=== PATIENT | male | born 1965 | race Caucasian/White ===

== ENCOUNTER 2019-10-21 19:06 | Inpatient (IN) | payer OTHER ==
[~2019-10-21] VITALS: Ht 170.2 cm; Wt 88.7 kg
[2019-10-21] MEDS ORDERED: LORazepam 2 MG TABLET PO ONE (19:30)
[2019-10-21 20:01] LABS: BASOPHILS % (AUTO) 0.4 % (0.0-2.0); EOSINOPHILS % (AUTO) 2.6 % (1.0-6.0); HEMOGLOBIN 16.4 g/dL (13.5-17.5); LYMPHOCYTES # (AUTO) 2.7 K/uL (1.0-4.8); LYMPHOCYTES % (AUTO) 33.8 % (22.0-44.0); MEAN CORPUSCULAR HEMOGLOBIN 30.7 pg (26.0-34.0); MEAN CORPUSCULAR HGB CONC 34.1 G/dL (31.0-37.0); MEAN CORPUSCULAR VOLUME 90 fL (80-100); MONOCYTES # (AUTO) 0.5 K/uL (0.1-1.0); MONOCYTES % (AUTO) 6.6 % (2.0-9.0); NEUTROPHILS # (AUTO) 4.5 K/uL (1.8-7.7); NEUTROPHILS % (AUTO) 56.6 % (40.0-70.0); PLATELET COUNT (AUTO) 293 K/uL (150-450); RED BLOOD CELL COUNT(AUTO) 5.33 MIL/uL (4.50-5.90); RED CELL DISTRIBUTION WIDTH 13.4 % (11.5-14.5)
[2019-10-21 20:09] LABS: ANION GAP 5 mmol/L (8-16); CARBON DIOXIDE 33 mmol/L (22-29); CHLORIDE 103 mmol/L (98-107); CREATININE 0.92 mg/dL (0.60-1.30); GLOMERULAR FILTR. RATE CALC > 60 mL/min (>60); GLUCOSE,RANDOM 79 mg/dL (70-110); POTASSIUM 4.1 mmol/L (3.5-5.1); SODIUM SERUM 141 mmol/L (136-145); UREA NITROGEN, BLOOD 13 mg/dL (7-18)
[2019-10-21 20:15] LABS: ALANINE AMINOTRANSFERASE 50 U/L (12-78); ALBUMIN 3.6 g/dL (3.4-5.0); ALKALINE PHOSPHATASE 40 U/L (46-116); ASPARTATE AMINOTRANSFERASE 33 U/L (15-37); LIPASE 123 U/L (73-393); TOTAL PROTEIN, SERUM 6.8 g/dL (6.4-8.2)
[2019-10-21 20:57] LABS: APPEARANCE,URINE CLEAR (CLEAR); BILIRUBIN,URINE PRELIM. POSITIVE (NEGATIVE); GLUCOSE, URINE (UA) NEGATIVE (NEGATIVE); KETONES,URINE NEGATIVE (NEGATIVE); LEUKOCYTE ESTERASE ,URINE NEGATIVE (NEGATIVE); NITRATE,URINE NEGATIVE (NEGATIVE); OCCULT BLOOD,URINE NEGATIVE (NEGATIVE); PROTEIN,URINE NEGATIVE (NEGATIVE)
[2019-10-21 21:02] LABS: AMPHET/METH SCREEN,URINE POSITIVE (NEGATIVE); BARBITURATE SCREEN, URINE NEGATIVE (NEGATIVE); BENZODIAZEPINES SCREEN,URINE NEGATIVE (NEGATIVE); CANNABINOID SCREEN,URINE POSITIVE (NEGATIVE); COCAINE SCREEN,URINE NEGATIVE (NEGATIVE); METHADONE SCREEN, URINE NEGATIVE (NEGATIVE); OPIATE SCREEN,URINE NEGATIVE (NEGATIVE)
[2019-10-21 21:03] LABS: PHENCYCLIDINE SCREEN,URINE NEGATIVE (NEGATIVE)
[2019-10-21 21:04] LABS: BACTERIA,URINE Rare /HPF (None Seen); RBC,URINE 0-2 /HPF (0-2); SQUAMOUS EPITHELIAL CELL,UR Rare /LPF (None Seen)
[2019-10-21] MEDS ORDERED: 0.9% SODIUM CHLORIDE 10 ML SYRINGE IVP PRN (21:30)
[2019-10-21] MEDS ORDERED: ACETAMINOPHEN 325 MG TABLET PO PRN (21:30)
[2019-10-21] MEDS ORDERED: ONDANSETRON HCL 4 MG/2 ML VIAL IVP PRN ×2 (21:30→22:00)
[2019-10-21] MEDS ORDERED: MAGNESIUM SULFATE 2 GM, MVI, ADULT NO.1 WITH VIT K 10 ML, THIAMINE 100 MG, FOLIC ACID 1... IV ONE ×5 (22:00)
[2019-10-21] MEDS ORDERED: MAGNESIUM HYDROXIDE SUSPENSION 30 ML UDCUP PO PRN (22:00)
[2019-10-21] MEDS ORDERED: LORazepam 1 MG TABLET PO PRN (22:00)
[2019-10-21] MEDS ORDERED: MORPHINE SULFATE 2 MG/ML SYRINGE IVP PRN (22:00)
[2019-10-21] MEDS ORDERED: BISACODYL 10 MG RECTAL RECTAL SUPPOSITORY PR PRN (22:00)
[2019-10-21 22:08] VITALS: BP 114/62
[2019-10-21 23:21] LABS: PROSTATE SPECIFIC ANTIGEN 6.11 ng/mL (0.00-4.00)
[2019-10-21] MEDS: HEPARIN SODIUM,PORCINE 5,000 UNITS/ML VIAL SQ SCH (23:38)
[2019-10-22 04:49] VITALS: BP 132/84
[2019-10-22 07:52] LABS: ALANINE AMINOTRANSFERASE 47 U/L (12-78); ALBUMIN 3.2 g/dL (3.4-5.0); ALKALINE PHOSPHATASE 35 U/L (46-116); ANION GAP 7 mmol/L (8-16); ASPARTATE AMINOTRANSFERASE 60 U/L (15-37); CALCIUM, TOTAL 8.7 mg/dL (8.8-10.5); CARBON DIOXIDE 26 mmol/L (22-29); CHLORIDE 103 mmol/L (98-107); CREATININE 0.85 mg/dL (0.60-1.30); GLOMERULAR FILTR. RATE CALC > 60 mL/min (>60); GLUCOSE,RANDOM 83 mg/dL (70-110); SODIUM SERUM 136 mmol/L (136-145); TOTAL PROTEIN, SERUM 6.4 g/dL (6.4-8.2); UREA NITROGEN, BLOOD 14 mg/dL (7-18)
[2019-10-22] MEDS: DOCUSATE SODIUM 100 MG CAPSULE PO SCH ×2 (08:02→20:08)
[2019-10-22] MEDS: HEPARIN SODIUM,PORCINE 5,000 UNITS/ML VIAL SQ SCH ×3 (08:02→23:05)
[2019-10-22] MEDS: PANTOPRAZOLE SODIUM 40 MG DR TABLET PO SCH (08:02)
[2019-10-22 08:05] VITALS: BP 116/69
[2019-10-22] MEDS: ACETAMINOPHEN 325 MG TABLET PO PRN (08:13)
[2019-10-22] MEDS: HYDROCODONE/ACETAMINOPHEN 5-325 MG TABLET PO PRN ×2 (15:24→20:19)
[2019-10-22 16:10] VITALS: BP 119/74
[2019-10-22] MEDS ORDERED: IBUPROFEN 400 MG TABLET PO SCH (18:00)
[2019-10-22] MEDS ORDERED: IBUPROFEN 400 MG TABLET PO PRN ×2 (18:30)
[2019-10-22] MEDS: BENZOCAINE 10% 7 GM GEL TP PRN (20:13)
[2019-10-22 20:20] VITALS: BP 113/63
[2019-10-23] MEDS: ZOLPIDEM TARTRATE 5 MG TABLET PO PRN ×2 (04:06→20:56)
[2019-10-23] MEDS: HYDROCODONE/ACETAMINOPHEN 5-325 MG TABLET PO PRN ×5 (04:07→20:57)
[2019-10-23 04:28] VITALS: BP 123/77
[2019-10-23 08:07] VITALS: BP 113/72
[2019-10-23] MEDS: HEPARIN SODIUM,PORCINE 5,000 UNITS/ML VIAL SQ SCH ×2 (08:12→16:21)
[2019-10-23] MEDS: PANTOPRAZOLE SODIUM 40 MG DR TABLET PO SCH (08:12)
[2019-10-23] MEDS: DOCUSATE SODIUM 100 MG CAPSULE PO SCH ×2 (08:12→19:45)
[2019-10-23] MEDS: BENZOCAINE 10% 7 GM GEL TP PRN (08:20)
[2019-10-23 16:12] VITALS: BP 110/66
[2019-10-23 19:44] VITALS: BP 123/71
[2019-10-24 00:14] VITALS: BP 133/70
[2019-10-24 05:13] VITALS: BP 118/78
[2019-10-24] MEDS: PANTOPRAZOLE SODIUM 40 MG DR TABLET PO SCH (07:53)
[2019-10-24] MEDS: HEPARIN SODIUM,PORCINE 5,000 UNITS/ML VIAL SQ SCH ×4 (07:54→23:41)
[2019-10-24] MEDS: DOCUSATE SODIUM 100 MG CAPSULE PO SCH ×2 (07:54→19:39)
[2019-10-24] MEDS: HYDROCODONE/ACETAMINOPHEN 5-325 MG TABLET PO PRN ×4 (07:55→22:15)
[2019-10-24 08:06] VITALS: BP 109/66
[2019-10-24 15:17] VITALS: BP 119/70
[2019-10-24] MEDS: BENZOCAINE 10% 7 GM GEL TP PRN (16:15)
[2019-10-24 19:00] VITALS: BP 114/79
[2019-10-24] MEDS: ZOLPIDEM TARTRATE 5 MG TABLET PO PRN (23:41)
[2019-10-25] MEDS: HEPARIN SODIUM,PORCINE 5,000 UNITS/ML VIAL SQ SCH ×3 (08:03→23:57)
[2019-10-25] MEDS: DOCUSATE SODIUM 100 MG CAPSULE PO SCH ×2 (08:03→19:43)
[2019-10-25] MEDS: PANTOPRAZOLE SODIUM 40 MG DR TABLET PO SCH (08:03)
[2019-10-25] MEDS: HYDROCODONE/ACETAMINOPHEN 5-325 MG TABLET PO PRN ×3 (08:13→22:13)
[2019-10-25 08:21] VITALS: BP 114/74
[2019-10-25 15:56] VITALS: BP 100/57
[2019-10-25] MEDS ORDERED: NICOTINE 14 MG/24 HOUR PATCH TD SCH (17:00)
[2019-10-25 19:25] VITALS: BP 95/59
[2019-10-25] MEDS: ACETAMINOPHEN 325 MG TABLET PO PRN (19:43)
[2019-10-25] MEDS: ZOLPIDEM TARTRATE 5 MG TABLET PO PRN (22:10)
[2019-10-26 04:15] VITALS: BP 98/59
[2019-10-26] MEDS: HYDROCODONE/ACETAMINOPHEN 5-325 MG TABLET PO PRN (04:22)
== END 2019-10-26 07:10 | DRG 897 ==
LOC: EMS 19:06 → 6S 21:24 → UNDOADMIN 21:24 → 6S 21:54
PROVIDERS: ADMIT Internal Medicine; ATTEND Internal Medicine
DX: F10.229 Alcohol dependence with intoxication, unspecified (principal); I86.1 Scrotal varices; N43.3 Hydrocele, unspecified; M47.812 Spondylosis without myelopathy or radiculopathy, cervical region; F12.90 Cannabis use, unspecified, uncomplicated; B18.2 Chronic viral hepatitis C; F15.90 Other stimulant use, unspecified, uncomplicated; N40.0 Benign prostatic hyperplasia without lower urinary tract symptoms; F17.210 Nicotine dependence, cigarettes, uncomplicated; Z90.49 Acquired absence of other specified parts of digestive tract
CPT/HCPCS: 72040; 76870; 84153; 87491; 87591; G0480; J1644; J2405; J3411; J3475; J3490; J7030

== ENCOUNTER 2019-11-08 23:38 | Emergency (ER) | payer OTHER ==
[~2019-11-08] VITALS: Ht 167.6 cm; Wt 81.8 kg
[2019-11-09] MEDS ORDERED: TAMS-13 PO (00:44)
[2019-11-09] MEDS ORDERED: GABA-1181 PO (00:44)
[2019-11-09] MEDS ORDERED: ACETAMINOPHEN 500 MG TABLET PO ONE (00:45)
[2019-11-09] MEDS ORDERED: SODIUM CHLORIDE 0.9% 100 ML ONE (01:06)
[2019-11-09] MEDS ORDERED: IOVERSOL 350 MG/ML 150 ML VIAL ONE (01:06)
[2019-11-09 01:34] LABS: BASOPHILS % (AUTO) 0.4 % (0.0-2.0); EOSINOPHILS % (AUTO) 1.7 % (1.0-6.0); HEMATOCRIT 47.9 % (41-53); HEMOGLOBIN 16.1 g/dL (13.5-17.5); LYMPHOCYTES # (AUTO) 3.2 K/uL (1.0-4.8); LYMPHOCYTES % (AUTO) 27.7 % (22.0-44.0); MEAN CORPUSCULAR HEMOGLOBIN 29.8 pg (26.0-34.0); MEAN CORPUSCULAR HGB CONC 33.7 G/dL (31.0-37.0); MEAN CORPUSCULAR VOLUME 88 fL (80-100); MONOCYTES # (AUTO) 0.9 K/uL (0.1-1.0); MONOCYTES % (AUTO) 7.6 % (2.0-9.0); NEUTROPHILS # (AUTO) 7.3 K/uL (1.8-7.7); NEUTROPHILS % (AUTO) 62.6 % (40.0-70.0); PLATELET COUNT (AUTO) 303 K/uL (150-450); RED BLOOD CELL COUNT(AUTO) 5.43 MIL/uL (4.50-5.90)
[2019-11-09 01:41] LABS: ANION GAP 9 mmol/L (8-16); CALCIUM, TOTAL 9.3 mg/dL (8.8-10.5); CARBON DIOXIDE 25 mmol/L (22-29); CHLORIDE 102 mmol/L (98-107); CREATININE 0.99 mg/dL (0.60-1.30); GLOMERULAR FILTR. RATE CALC > 60 mL/min (>60); GLUCOSE,RANDOM 92 mg/dL (70-110); POTASSIUM 3.7 mmol/L (3.5-5.1); SODIUM SERUM 136 mmol/L (136-145); UREA NITROGEN, BLOOD 10 mg/dL (7-18)
[2019-11-09 01:47] LABS: ALANINE AMINOTRANSFERASE 65 U/L (12-78); ALBUMIN 3.9 g/dL (3.4-5.0); ALKALINE PHOSPHATASE 47 U/L (46-116); ASPARTATE AMINOTRANSFERASE 36 U/L (15-37); BILIRUBIN,TOTAL 0.7 mg/dL (0.1-1.0); TOTAL PROTEIN, SERUM 7.1 g/dL (6.4-8.2)
[2019-11-09 04:45] VITALS: BP 137/72
== END 2019-11-09 04:59 | disposition home or self-care (01) ==
LOC: EMS 23:38
DX: S09.90XA Unspecified injury of head, initial encounter (principal); Y08.89XA Assault by other specified means, initial encounter; Y93.89 Activity, other specified; Y92.89 Other specified places as the place of occurrence of the external cause; Y99.8 Other external cause status
CPT/HCPCS: 36415; 70450; 70486; 71260; 72125; 72128; 72131; 74177; 80053; 85025; 99285; J7050; Q9967; 72193; 74160

== ENCOUNTER 2020-07-14 14:49 | Inpatient (IN) | payer OTHER ==
[~2020-07-14] VITALS: Ht 177.8 cm; Wt 118.0 kg
[~2020-07-14 14:49] MED LIST: GABA-1181 PO; TAMS-13 PO
[2020-07-14] MEDS ORDERED: HYDR-4031 PO (14:57)
[2020-07-14 15:59] LABS: COVID AG,FIA SOURCE NASOPHARYNGEAL
[2020-07-14 16:01] LABS: BASOPHILS % (AUTO) 0.8 % (0.0-2.0); EOSINOPHILS % (AUTO) 5.2 % (1.0-6.0); HEMATOCRIT 42.8 % (41-53); HEMOGLOBIN 14.5 g/dL (13.5-17.5); LYMPHOCYTES # (AUTO) 1.9 K/uL (1.0-4.8); LYMPHOCYTES % (AUTO) 35.3 % (22.0-44.0); MEAN CORPUSCULAR HEMOGLOBIN 28.5 pg (26.0-34.0); MEAN CORPUSCULAR HGB CONC 33.8 G/dL (31.0-37.0); MEAN CORPUSCULAR VOLUME 84 fL (80-100); MONOCYTES # (AUTO) 0.6 K/uL (0.1-1.0); MONOCYTES % (AUTO) 10.9 % (2.0-9.0); NEUTROPHILS # (AUTO) 2.5 K/uL (1.8-7.7); NEUTROPHILS % (AUTO) 47.8 % (40.0-70.0); PLATELET COUNT (AUTO) 231 K/uL (150-450); RED BLOOD CELL COUNT(AUTO) 5.08 MIL/uL (4.50-5.90); RED CELL DISTRIBUTION WIDTH 13.4 % (11.5-14.5)
[2020-07-14 16:15] LABS: ANION GAP 6 mmol/L (8-16); CALCIUM, TOTAL 8.5 mg/dL (8.8-10.5); CARBON DIOXIDE 28 mmol/L (22-29); CHLORIDE 107 mmol/L (98-107); GLOMERULAR FILTR. RATE CALC > 60 mL/min (>60); GLUCOSE,RANDOM 108 mg/dL (70-110); POTASSIUM 3.8 mmol/L (3.5-5.1); SODIUM SERUM 141 mmol/L (136-145); UREA NITROGEN, BLOOD 11 mg/dL (7-18)
[2020-07-14 16:22] LABS: AMMONIA 24 umol/L (11-32)
[2020-07-14] MEDS ORDERED: IOHEXOL 350 MG/ML 100 ML VIAL ONE (16:22)
[2020-07-14] MEDS ORDERED: SODIUM CHLORIDE 0.9% 100 ML ONE (16:22)
[2020-07-14 16:23] LABS: LACTIC ACID 0.8 mmol/L (0.4-2.0)
[2020-07-14 16:27] LABS: TROPONIN I < 0.02 ng/mL (0.00-0.05)
[2020-07-14 16:30] LABS: B-TYPE NATRIURETIC PEPTIDE 19 pg/mL (0-100)
[2020-07-14 16:40] LABS: ALANINE AMINOTRANSFERASE 47 U/L (12-78); ALBUMIN 3.4 g/dL (3.4-5.0); ALKALINE PHOSPHATASE 70 U/L (46-116); ASPARTATE AMINOTRANSFERASE 31 U/L (15-37); BILIRUBIN,TOTAL 0.5 mg/dL (0.1-1.0); CREATINE KINASE, TOTAL ONLY 148 U/L (39-308); LIPASE 83 U/L (73-393); TOTAL PROTEIN, SERUM 6.1 g/dL (6.4-8.2)
[2020-07-14] MEDS ORDERED: FAMOTIDINE 10 MG/ML 2 ML VIAL IVP ONE (17:30)
[2020-07-14] MEDS ORDERED: PB/HYOSCY/ATR/SCOP/LIDO/MAALOX 55 ML BOTTLE PO ONE (17:30)
[2020-07-14 17:48] LABS: APPEARANCE,URINE CLEAR (CLEAR); BILIRUBIN,URINE NEGATIVE (NEGATIVE); GLUCOSE, URINE (UA) NEGATIVE (NEGATIVE); KETONES,URINE NEGATIVE (NEGATIVE); LEUKOCYTE ESTERASE ,URINE NEGATIVE (NEGATIVE); NITRATE,URINE NEGATIVE (NEGATIVE); OCCULT BLOOD,URINE NEGATIVE (NEGATIVE); PH,URINE 6.5 (5.0-8.0); PROTEIN,URINE NEGATIVE (NEGATIVE)
[2020-07-14 17:58] LABS: RBC,URINE None Seen /HPF (0-2); WBC,URINE None Seen /HPF (0-5)
[2020-07-14 17:59] LABS: BACTERIA,URINE None Seen /HPF (None Seen); SQUAMOUS EPITHELIAL CELL,UR None Seen /LPF (None Seen)
[2020-07-14] MEDS ORDERED: 0.9% SODIUM CHLORIDE 10 ML SYRINGE IVP PRN (19:30)
[2020-07-14] MEDS ORDERED: ONDANSETRON HCL 4 MG/2 ML VIAL IVP PRN ×2 (19:30→20:45)
[2020-07-14] MEDS ORDERED: ACETAMINOPHEN 325 MG TABLET PO PRN (19:30)
[2020-07-14 21:05] VITALS: BP 129/98
[2020-07-14] MEDS: HydrOXYzine PAMOATE 25 MG CAPSULE PO SCH (21:31)
[2020-07-14] MEDS: GABAPENTIN 300 MG CAPSULE PO SCH (21:31)
[2020-07-14] MEDS: FUROSEMIDE 20 MG TABLET PO SCH (21:31)
[2020-07-14 23:09] VITALS: BP 108/57
[2020-07-14] MEDS: HEPARIN SODIUM,PORCINE 5,000 UNITS/ML VIAL SQ SCH (23:43)
[2020-07-14] MEDS: MELATONIN 3 MG TABLET PO PRN (23:44)
[2020-07-15] MEDS: ACETAMINOPHEN 325 MG TABLET PO PRN ×2 (03:48→15:16)
[2020-07-15 03:49] VITALS: BP 113/71
[2020-07-15 07:12] VITALS: BP 106/75
[2020-07-15] MEDS: GABAPENTIN 300 MG CAPSULE PO SCH ×2 (07:49→20:31)
[2020-07-15] MEDS: HEPARIN SODIUM,PORCINE 5,000 UNITS/ML VIAL SQ SCH ×3 (07:49→23:46)
[2020-07-15] MEDS: TAMSULOSIN HCL 0.4 MG CAPSULE PO SCH (07:49)
[2020-07-15] MEDS: HydrOXYzine PAMOATE 25 MG CAPSULE PO SCH ×2 (07:49→20:31)
[2020-07-15] MEDS: FUROSEMIDE 20 MG TABLET PO SCH (07:49)
[2020-07-15] MEDS: ASPIRIN 81 MG CHEWABLE TABLET PO SCH (07:49)
[2020-07-15 11:17] VITALS: BP 105/58
[2020-07-15 15:50] VITALS: BP 108/64
[2020-07-15 20:18] VITALS: BP 109/68
[2020-07-15] MEDS: MELATONIN 3 MG TABLET PO PRN (22:10)
[2020-07-16 00:15] VITALS: BP 99/63
[2020-07-16 05:17] VITALS: BP 99/66
[2020-07-16 08:13] VITALS: BP 125/72
[2020-07-16] MEDS: FUROSEMIDE 20 MG TABLET PO SCH (08:41)
[2020-07-16] MEDS: GABAPENTIN 300 MG CAPSULE PO SCH ×2 (08:42→20:26)
[2020-07-16] MEDS: HEPARIN SODIUM,PORCINE 5,000 UNITS/ML VIAL SQ SCH ×3 (08:42→23:17)
[2020-07-16] MEDS: ASPIRIN 81 MG CHEWABLE TABLET PO SCH (08:42)
[2020-07-16] MEDS: HydrOXYzine PAMOATE 25 MG CAPSULE PO SCH ×2 (08:42→20:26)
[2020-07-16] MEDS: TAMSULOSIN HCL 0.4 MG CAPSULE PO SCH (08:42)
[2020-07-16] MEDS ORDERED: ASPI-1450 PO (10:34)
[2020-07-16] MEDS ORDERED: FURO20 PO (10:35)
[2020-07-16] MEDS ORDERED: POTA8CAP20 PO (10:35)
[2020-07-16] MEDS ORDERED: MELA3TAB89 PO (10:36)
[2020-07-16] MEDS ORDERED: ACET650S24 PO (10:36)
[2020-07-16 11:28] VITALS: BP 125/76
[2020-07-16 18:16] VITALS: BP 110/71
[2020-07-16 20:05] VITALS: BP 98/56
[2020-07-16] MEDS: MELATONIN 3 MG TABLET PO PRN (20:27)
[2020-07-17 04:10] VITALS: BP 114/67
[2020-07-17 07:44] VITALS: BP 119/69
[2020-07-17] MEDS: HEPARIN SODIUM,PORCINE 5,000 UNITS/ML VIAL SQ SCH (08:04)
[2020-07-17] MEDS: GABAPENTIN 300 MG CAPSULE PO SCH (08:04)
[2020-07-17] MEDS: TAMSULOSIN HCL 0.4 MG CAPSULE PO SCH (08:04)
[2020-07-17] MEDS: ASPIRIN 81 MG CHEWABLE TABLET PO SCH (08:05)
[2020-07-17] MEDS: HydrOXYzine PAMOATE 25 MG CAPSULE PO SCH (08:05)
[2020-07-17] MEDS: FUROSEMIDE 20 MG TABLET PO SCH (08:07)
[2020-07-17] MEDS: ACETAMINOPHEN 325 MG TABLET PO PRN (08:16)
[2020-07-17] MEDS ORDERED: POTASSIUM CHLORIDE 8 MEQ ER TABLET PO SCH (09:00)
== END 2020-07-17 14:00 | DRG 313 ==
LOC: EMS 14:49 → 5S 19:42 → 6S 07-16 17:40
PROVIDERS: ADMIT Internal Medicine; ATTEND Internal Medicine
DX: R07.89 Other chest pain (principal); E66.9 Obesity, unspecified; Z68.37 Body mass index [BMI] 37.0-37.9, adult; N40.0 Benign prostatic hyperplasia without lower urinary tract symptoms; G47.33 Obstructive sleep apnea (adult) (pediatric); K76.9 Liver disease, unspecified; Z90.49 Acquired absence of other specified parts of digestive tract; F17.200 Nicotine dependence, unspecified, uncomplicated; F12.90 Cannabis use, unspecified, uncomplicated; F15.90 Other stimulant use, unspecified, uncomplicated; B18.2 Chronic viral hepatitis C; R60.0 Localized edema; Z20.822 Contact with and (suspected) exposure to COVID-19
CPT/HCPCS: 71045; 74177; 80053; 81001; 82140; 82550; 83605; 83690; 83735; 83880; 84484; 85025; 85379; 87040; 87426; 93005; 93306; 93970; 99285; A9575; J1644; J2405; J3490; J7050; 36415-L1; 36415-TC

== ENCOUNTER 2024-04-20 21:50 | Emergency (ER) | payer OTHER ==
[~2024-04-20] VITALS: Ht 167.6 cm; Wt 86.4 kg
[~2024-04-20 21:50] MED LIST changes: +ACET650S24 PO; +ASPI-1450 PO; +FURO20TA5 PO; +HYDR-4808 PO; +MELA3TAB89 PO; +POTA8CAP20 PO; -TAMS-13 PO; +TAMS0.4C94 PO
[2024-04-20 22:46] VITALS: TEMP 98.6
[2024-04-20 23:11] LABS: BASOPHILS % (AUTO) 0.5 % (0.0-2.0); EOSINOPHILS % (AUTO) 2.9 % (1.0-6.0); HEMATOCRIT 49.3 % (41-53); HEMOGLOBIN 16.5 g/dL (13.5-17.5); LYMPHOCYTES # (AUTO) 3.4 K/uL (1.0-4.8); LYMPHOCYTES % (AUTO) 38.7 % (22.0-44.0); MEAN CORPUSCULAR HEMOGLOBIN 29.8 pg (26.0-34.0); MEAN CORPUSCULAR HGB CONC 33.5 G/dL (31.0-37.0); MEAN CORPUSCULAR VOLUME 89 fL (80-100); MONOCYTES # (AUTO) 0.6 K/uL (0.1-1.0); MONOCYTES % (AUTO) 6.4 % (2.0-9.0); NEUTROPHILS # (AUTO) 4.5 K/uL (1.8-7.7); NEUTROPHILS % (AUTO) 51.5 % (40.0-70.0); PLATELET COUNT (AUTO) 332 K/uL (150-450); RED BLOOD CELL COUNT(AUTO) 5.55 MIL/uL (4.50-5.90); RED CELL DISTRIBUTION WIDTH 13.3 % (11.5-14.5); WHITE BLOOD COUNT (AUTO) 8.8 K/uL (4.5-11.0)
[2024-04-20 23:24] LABS: ANION GAP 4 mmol/L (8-16); CALCIUM, TOTAL 9.1 mg/dL (8.8-10.5); CARBON DIOXIDE 32 mmol/L (22-29); CHLORIDE 103 mmol/L (98-107); CREATININE 0.99 mg/dL (0.60-1.30); GLOMERULAR FILTR. RATE CALC > 60 mL/min (>60); GLUCOSE,RANDOM 78 mg/dL (70-110); POTASSIUM 4.4 mmol/L (3.5-5.1); SODIUM SERUM 139 mmol/L (136-145); UREA NITROGEN, BLOOD 15 mg/dL (7-18)
[2024-04-21] VITALS: BP 128/71; PULSE 70; RESP 18; O2SAT 98
== END 2024-04-21 00:16 ==
LOC: EMS 21:50
DX: K59.00 Constipation, unspecified (principal); M25.511 Pain in right shoulder; Z79.899 Other long term (current) drug therapy; Z86.0100 Personal history of colon polyps, unspecified; Z86.19 Personal history of other infectious and parasitic diseases; Z90.49 Acquired absence of other specified parts of digestive tract
CPT/HCPCS: 74018; 80048; 85025; 99284; 36415-L1; 36415-TC

== ENCOUNTER 2024-04-23 19:13 | Inpatient (IN) | payer OTHER ==
[~2024-04-23] VITALS: Ht 167.6 cm; Wt 90.9 kg
[2024-04-23 19:48] LABS: BASOPHILS % (AUTO) 0.8 % (0.0-2.0); EOSINOPHILS % (AUTO) 3.4 % (1.0-6.0); HEMATOCRIT 47.2 % (41-53); HEMOGLOBIN 15.9 g/dL (13.5-17.5); LYMPHOCYTES % (AUTO) 29.9 % (22.0-44.0); MEAN CORPUSCULAR HEMOGLOBIN 29.5 pg (26.0-34.0); MEAN CORPUSCULAR HGB CONC 33.6 G/dL (31.0-37.0); MEAN CORPUSCULAR VOLUME 88 fL (80-100); MONOCYTES # (AUTO) 0.5 K/uL (0.1-1.0); MONOCYTES % (AUTO) 7.3 % (2.0-9.0); NEUTROPHILS # (AUTO) 3.9 K/uL (1.8-7.7); NEUTROPHILS % (AUTO) 58.6 % (40.0-70.0); PLATELET COUNT (AUTO) 317 K/uL (150-450); RED BLOOD CELL COUNT(AUTO) 5.38 MIL/uL (4.50-5.90); RED CELL DISTRIBUTION WIDTH 13.2 % (11.5-14.5); WHITE BLOOD COUNT (AUTO) 6.6 K/uL (4.5-11.0)
[2024-04-23 19:57] LABS: ANION GAP 7 mmol/L (8-16); CALCIUM, TOTAL 8.4 mg/dL (8.8-10.5); CARBON DIOXIDE 29 mmol/L (22-29); CHLORIDE 105 mmol/L (98-107); CREATININE 0.77 mg/dL (0.60-1.30); GLOMERULAR FILTR. RATE CALC > 60 mL/min (>60); GLUCOSE,RANDOM 110 mg/dL (70-110); POTASSIUM 3.8 mmol/L (3.5-5.1); SODIUM SERUM 141 mmol/L (136-145); UREA NITROGEN, BLOOD 11 mg/dL (7-18)
[2024-04-23 20:01] LABS: ALANINE AMINOTRANSFERASE 19 U/L (12-78); ALBUMIN 3.2 g/dL (3.4-5.0); ALKALINE PHOSPHATASE 62 U/L (46-116); ASPARTATE AMINOTRANSFERASE 18 U/L (15-37); BILIRUBIN,TOTAL 0.7 mg/dL (0.1-1.0); TOTAL PROTEIN, SERUM 6.6 g/dL (6.4-8.2)
[2024-04-23 20:21] LABS: TROPONIN I-HIGH SENSITIVITY 29 ng/L (<76)
[2024-04-23] MEDS: KETOROLAC TROMETHAMINE 30 MG/ML VIAL IVP ONE (20:27)
[2024-04-23] MEDS: SODIUM CHLORIDE 0.9% 1,000 ML IV ONE (20:27)
[2024-04-23] MEDS: ONDANSETRON HCL 4 MG/2 ML VIAL IVP ONE (20:27)
[2024-04-24] MEDS: KETOROLAC TROMETHAMINE 30 MG/ML VIAL IVP ONE (05:27)
[2024-04-24 07:02] VITALS: BP 137/85; PULSE 61; RESP 18; TEMP 97.9; O2SAT 98
[2024-04-24 08:31] VITALS: BP 124/69; PULSE 59; RESP 18; TEMP 97.7; O2SAT 99
[2024-04-24] MEDS ORDERED: LOPERAMIDE HCL 2 MG CAPSULE PO PRN (10:30)
[2024-04-24] MEDS ORDERED: DICYCLOMINE HCL 10 MG CAPSULE PO PRN (10:30)
[2024-04-24] MEDS ORDERED: LORazepam 2 MG/ML VIAL IVP PRN (10:30)
[2024-04-24] MEDS ORDERED: METOCLOPRAMIDE HCL 5 MG/ML 2 ML VIAL IVP PRN (10:30)
[2024-04-24] MEDS ORDERED: ACETAMINOPHEN 325 MG TABLET PO PRN (14:30)
[2024-04-24] MEDS ORDERED: IBUPROFEN 400 MG TABLET PO PRN (14:30)
[2024-04-24] MEDS: TEMAZEPAM 15 MG CAPSULE PO SCH (20:26)
[2024-04-24] MEDS: MORPHINE SULFATE 2 MG/ML SYRINGE IVP PRN (22:30)
[2024-04-25 04:03] VITALS: BP 128/85; PULSE 64; RESP 18; TEMP 98.2; O2SAT 97
[2024-04-25 08:16] VITALS: BP 122/79; PULSE 108; RESP 18; TEMP 98.1; O2SAT 95
[2024-04-25] MEDS ORDERED: ONDANSETRON HCL 4 MG/2 ML VIAL IVP PRN (13:15)
[2024-04-25] MEDS ORDERED: ACET-2247 PO (13:36)
[2024-04-25] MEDS ORDERED: MELATONIN 3 MG TABLET PO PRN (13:45)
[2024-04-25 16:41] VITALS: BP 134/98; PULSE 71; RESP 18; TEMP 98.2; O2SAT 97
[2024-04-25 20:04] VITALS: BP 118/70; PULSE 69; RESP 18; TEMP 98.4; O2SAT 98
[2024-04-25] MEDS: GABAPENTIN 300 MG CAPSULE PO SCH (20:32)
[2024-04-25] MEDS: DOCUSATE SODIUM 100 MG CAPSULE PO SCH (20:33)
[2024-04-25] MEDS ORDERED: DULoxetine HCL 20 MG CAPSULE PO SCH (21:00)
[2024-04-25] MEDS: GABAPENTIN 300 MG CAPSULE PO ONE (22:26)
[2024-04-25] MEDS: DICLOFENAC SODIUM 1% 100 GM GEL [2GM] TP SCH (22:27)
[2024-04-25] MEDS: DULoxetine HCL 30 MG CAPSULE PO SCH (22:27)
[2024-04-26 05:15] VITALS: BP 131/78; PULSE 64; RESP 18; TEMP 98; O2SAT 96
[2024-04-26 07:31] LABS: HEMOGLOBIN 16.3 g/dL (13.5-17.5); LYMPHOCYTES # (AUTO) 2.3 K/uL (1.0-4.8); LYMPHOCYTES % (AUTO) 32.4 % (22.0-44.0); MONOCYTES # (AUTO) 0.6 K/uL (0.1-1.0); RED CELL DISTRIBUTION WIDTH 13.1 % (11.5-14.5); WHITE BLOOD COUNT (AUTO) 7.1 K/uL (4.5-11.0)
[2024-04-26 07:52] LABS: BASOPHILS % (AUTO) 0.5 % (0.0-2.0); EOSINOPHILS % (AUTO) 3.8 % (1.0-6.0); HEMATOCRIT 48.4 % (41-53); MEAN CORPUSCULAR HEMOGLOBIN 29.5 pg (26.0-34.0); MEAN CORPUSCULAR HGB CONC 33.7 G/dL (31.0-37.0); MEAN CORPUSCULAR VOLUME 88 fL (80-100); MONOCYTES % (AUTO) 8.7 % (2.0-9.0); NEUTROPHILS # (AUTO) 3.9 K/uL (1.8-7.7); NEUTROPHILS % (AUTO) 54.6 % (40.0-70.0); RED BLOOD CELL COUNT(AUTO) 5.52 MIL/uL (4.50-5.90)
[2024-04-26 07:55] LABS: ANION GAP 8 mmol/L (8-16); CALCIUM, TOTAL 8.3 mg/dL (8.8-10.5); CARBON DIOXIDE 26 mmol/L (22-29); CHLORIDE 104 mmol/L (98-107); CREATININE 0.86 mg/dL (0.60-1.30); GLOMERULAR FILTR. RATE CALC > 60 mL/min (>60); GLUCOSE,RANDOM 90 mg/dL (70-110); SODIUM SERUM 138 mmol/L (136-145); UREA NITROGEN, BLOOD 18 mg/dL (7-18)
[2024-04-26 08:15] VITALS: BP 130/75; PULSE 65; RESP 18; TEMP 98.2; O2SAT 99
[2024-04-26] MEDS: TAMSULOSIN HCL 0.4 MG CAPSULE PO SCH (08:48)
[2024-04-26] MEDS: GABAPENTIN 300 MG CAPSULE PO SCH (08:48)
[2024-04-26] MEDS: ASPIRIN 81 MG CHEWABLE TABLET PO SCH (08:49)
[2024-04-26 08:56] LABS: PLATELET COUNT (AUTO) 293 K/uL (150-450)
[2024-04-26] MEDS ORDERED: DICL100G60 TP (10:13)
[2024-04-26] MEDS ORDERED: IBUP-1506 PO (10:13)
[2024-04-26] MEDS ORDERED: GABA-1181 PO (10:13)
[2024-04-26] MEDS ORDERED: CARV3 PO (11:08)
== END 2024-04-26 14:13 | DRG 556 ==
LOC: EMS 19:13 → EDH 04-24 04:16 → 6S 04-24 06:37
PROVIDERS: ADMIT Internal Medicine; ATTEND Internal Medicine
DX: M25.511 Pain in right shoulder (principal); F11.23 Opioid dependence with withdrawal; N40.0 Benign prostatic hyperplasia without lower urinary tract symptoms; E44.1 Mild protein-calorie malnutrition; G89.4 Chronic pain syndrome; K76.9 Liver disease, unspecified; Z68.32 Body mass index [BMI] 32.0-32.9, adult; Z86.0100 Personal history of colon polyps, unspecified
CPT/HCPCS: 80048; 80076; 83735; 84484; 85025; 93005; 96361; 96374; 96375; 99285; G0480; J1885; J2270; J2405; J7030; 36415-L1; 36415-TC

== ENCOUNTER 2024-12-08 00:14 | Inpatient (IN) | payer OTHER ==
[~2024-12-08] VITALS: Ht 170.2 cm; Wt 106.9 kg
[~2024-12-08 00:14] MED LIST changes: +ACET-2247 PO; -ACET650S24 PO; +CARV3 PO; +DICL100G60 TP; +IBUP-1506 PO
[2024-12-08 04:46] LABS: PLATELET COUNT (AUTO) 275 K/uL (150-450); RED BLOOD CELL COUNT(AUTO) 5.05 MIL/uL (4.50-5.90); RED CELL DISTRIBUTION WIDTH 14.5 % (11.5-14.5); WHITE BLOOD COUNT (AUTO) 7.4 K/uL (4.5-11.0)
[2024-12-08 04:55] LABS: CALCIUM, TOTAL 8.6 mg/dL (8.8-10.5); CREATININE 0.83 mg/dL (0.60-1.30); GLOMERULAR FILTR. RATE CALC > 60 mL/min (>60); GLUCOSE,RANDOM 126 mg/dL (70-110); SODIUM SERUM 141 mmol/L (136-145); UREA NITROGEN, BLOOD 14 mg/dL (7-18)
[2024-12-08 05:04] LABS: TROPONIN I-HIGH SENSITIVITY 49 ng/L (<76)
[2024-12-08] MEDS: HYDROCODONE/ACETAMINOPHEN 5-325 MG TABLET PO ONE (05:23)
[2024-12-08] MEDS ORDERED: ACETAMINOPHEN 325 MG TABLET PO PRN (05:30)
[2024-12-08] MEDS ORDERED: MAGNESIUM HYDROXIDE SUSPENSION 30 ML UDCUP PO PRN (05:30)
[2024-12-08] MEDS ORDERED: ZOLPIDEM TARTRATE 5 MG TABLET PO PRN (05:30)
[2024-12-08] MEDS ORDERED: ONDANSETRON HCL 4 MG/2 ML VIAL IVP PRN (05:30)
[2024-12-08] MEDS ORDERED: POTASSIUM CHL 10 MEQ/WATER 50 ML IV PRN (08:00)
[2024-12-08] MEDS ORDERED: TAMS0.4C94 PO (09:07)
[2024-12-08] MEDS ORDERED: ALBU18HF12 IH (09:07)
[2024-12-08] MEDS ORDERED: TADA20TA31 PO (09:07)
[2024-12-08] MEDS ORDERED: FLUT1BLS18 IH (09:07)
[2024-12-08] MEDS ORDERED: LISI2.5T91 PO (09:07)
[2024-12-08] MEDS ORDERED: DOCU-119 PO (09:07)
[2024-12-08] MEDS ORDERED: CARV3.1231 PO (09:07)
[2024-12-08] MEDS ORDERED: HYDR-4062 PO (09:07)
[2024-12-08] MEDS: FAMOTIDINE 20 MG TABLET PO SCH (09:18)
[2024-12-08] MEDS: HEPARIN SODIUM,PORCINE 5,000 UNITS/ML VIAL SQ SCH (09:18)
[2024-12-08] MEDS: DOCUSATE SODIUM 100 MG CAPSULE PO SCH (09:18)
[2024-12-08 09:53] VITALS: BP 125/79; PULSE 70; RESP 18; TEMP 97.9; O2SAT 97
[2024-12-08] MEDS: OxyCODONE HCL/ACETAMINOPHEN 5-325 MG TABLET PO PRN (15:20)
[2024-12-08 16:00] VITALS: BP 128/93; RESP 20; O2SAT 98
[2024-12-08] MEDS: POTASSIUM CHLORIDE 20 MEQ ER TABLET PO PRN (17:06)
[2024-12-08 19:42] VITALS: BP 128/84; PULSE 76; RESP 19; TEMP 98.1; O2SAT 95
[2024-12-08] MEDS: GABAPENTIN 300 MG CAPSULE PO SCH (21:03)
[2024-12-09 00:13] VITALS: BP 103/57; PULSE 78; RESP 18; TEMP 98.1; O2SAT 96
[2024-12-09 04:15] VITALS: BP 121/85; PULSE 69; RESP 18; TEMP 98.2; O2SAT 98
[2024-12-09 07:00] VITALS: BP 118/80; PULSE 74; RESP 18; TEMP 98.6; O2SAT 97
[2024-12-09] MEDS: ASPIRIN 81 MG CHEWABLE TABLET PO SCH (08:00)
[2024-12-09] MEDS: TAMSULOSIN HCL 0.4 MG CAPSULE PO SCH (08:00)
[2024-12-09] MEDS ORDERED: FAMO20 PO (11:28)
[2024-12-09] MEDS ORDERED: MAGN-169 PO (11:37)
[2024-12-09] MEDS ORDERED: ACET-2080 PO (11:39)
[2024-12-09 12:14] VITALS: BP 126/89; PULSE 71; RESP 18; TEMP 98.6; O2SAT 95
== END 2024-12-09 14:45 | DRG 554 ==
LOC: EMS 00:18 → EDH 05:30 → 5S 09:40
PROVIDERS: ADMIT Internal Medicine; ATTEND Internal Medicine
DX: M19.012 Primary osteoarthritis, left shoulder (principal); F11.23 Opioid dependence with withdrawal; E87.6 Hypokalemia; M19.011 Primary osteoarthritis, right shoulder; G89.29 Other chronic pain; N40.0 Benign prostatic hyperplasia without lower urinary tract symptoms; E66.9 Obesity, unspecified; Z96.619 Presence of unspecified artificial shoulder joint; I11.0 Hypertensive heart disease with heart failure; I50.9 Heart failure, unspecified; Z86.0100 Personal history of colon polyps, unspecified; Z68.36 Body mass index [BMI] 36.0-36.9, adult; Z91.013 Allergy to seafood
CPT/HCPCS: 80048; 83880; 84132; 84484; 85025; 93005; 99285; J1644